=== PATIENT | male | born 1980 | race Caucasian/White ===

== ENCOUNTER 2019-03-25 16:27 | Emergency (ER) | payer OTHER | END 2019-03-25 18:23 | disposition home or self-care (01) | LOC: JERFT 16:27 ==

== ENCOUNTER 2019-03-30 13:39 | Emergency (ER) | payer OTHER ==
--- NOTE | 2019-03-30 13:47 | PDOC ---
Rapid Medical Evaluation Time Seen by Provider: 03/30/19 13:42 Medical Evaluation: Allergies Allergy/AdvReac Type Severity Reaction Status Date / Time No Known Allergies Allergy Verified 03/25/19 16:33 03/30/19 13:43 HPI: Here for f/u from needle stick PE:No gross deficits ORDERS:Nothing Discharge Disposition - Diagnosis Needle stick injury of finger - Referrals - Patient Instructions - Post Discharge Activity
[2019-03-30 13:49] VITALS: BP 161/96; PULSE 72; TEMP 98; BMI 39.1
[2019-03-30] MEDS ORDERED: HEPATITIS B IMMUNE GLOBULIN 5 ML VIAL IM ONE (14:51)
[2019-03-30] MEDS ORDERED: HEPATITIS B VIRUS VACCINE-PF 20 MCG/1ML PRE-FILLED SYRINGE IM ONE (14:57)
--- NOTE | 2019-03-30 14:58 | PDOC ---
History of Present Illness - General Chief Complaint: Non EmpBld/Body Flud Exposure Stated Complaint: NEEDLE EXPOSURE Time Seen by Provider: 03/30/19 13:42 History Source: Patient Exam Limitations: No Limitations Past History - Travel Traveled outside of the country in the last 30 days: No Close contact w/someone who was outside of country & ill: No - Past Medical History Allergies/Adverse Reactions: Allergies Allergy/AdvReac Type Severity Reaction Status Date / Time No Known Allergies Allergy Verified 03/30/19 13:49 Home Medications: Ambulatory Orders Raltegravir [Isentress -] 400 mg PO BID #46 tab 03/25/19 COPD: No - Immunization History Immunization Up to Date: Yes - Suicide/Smoking/Psychosocial Hx Smoking History: Never smoked Have you smoked in the past 12 months: No Hx Alcohol Use: No Drug/Substance Use Hx: No Review of Systems - Review of Systems Able to Perform ROS?: Yes Comments:: 03/30/19 16:19 CONSTITUTIONAL: Absent: fever, chills, diaphoresis, generalized weakness, malaise, loss of appetite HEENT: Absent: rhinorrhea, nasal congestion, throat pain, throat swelling, difficulty swallowing, mouth swelling, ear pain, eye pain, visual Changes CARDIOVASCULAR: Absent: chest pain, loss of consciousness, palpitations, irregular heart rate, peripheral edema RESPIRATORY: Absent: cough, shortness of breath, dyspnea with exertion, orthopnea, wheezing, stridor, hemoptysis GASTROINTESTINAL: Absent: abdominal pain, abdominal distension, nausea, vomiting, diarrhea, constipation, melena, hematochezia GENITOURINARY: Absent: dysuria, frequency, urgency, hesitancy, hematuria, flank pain, genital pain MUSCULOSKELETAL: Absent: myalgia, arthralgia, joint swelling SKIN: Absent: rash, itching, pallor HEMATOLOGIC/IMMUNOLOGIC: Absent: easy bleeding, easy bruising, lymphadenopathy, frequent infections ENDOCRINE: Absent: unexplained weight gain, unexplained weight loss, heat intolerance, cold intolerance NEUROLOGIC: Absent: headache, focal weakness or paresthesias, dizziness, unsteady gait, seizure, mental status changes, bladder or bowel incontinence PSYCHIATRIC: Absent: anxiety, depression, suicidal or homicidal ideation, hallucinations. Is the patient limited Chinese proficient: No *Physical Exam - Vital Signs Last Vital Signs Temp Pulse Resp BP Pulse Ox 98 F 72 18 161/96 99 03/30/19 13:47 03/30/19 13:47 03/30/19 13:47 03/30/19 13:47 03/30/19 13:47 - Physical Exam Comments: 03/30/19 16:19 GENERAL: The patient is awake, alert, and fully oriented, in no acute distress. HEAD: Normal with no signs of trauma. EYES: Pupils equal, round and reactive to light, extraocular movements intact, sclera anicteric, conjunctiva clear. EXTREMITIES: Normal range of motion, no edema. NEUROLOGICAL: Normal speech, normal gait. PSYCH: Normal mood, normal affect. SKIN: Warm, Dry, normal turgor, no rashes or lesions noted. Medical Decision Making - Medical Decision Making 03/30/19 16:20 The patient is a 38-year-old male no past medical history who presents to the ER today after receiving a phone call that he needs hepatitis vaccinations. He was seen 3 days ago after a needlestick exposure. On his hep panel he has no immunity to hepatitis B so he presents for vaccinations. He has no other complaints at this time. A/P: Need for vaccination On exam patient has no complaints, afebrile, vital signs are stable. Hep B vaccine ordered Hep B immunoglobulin ordered; Delay in giving the immunoglobulin as we do not have enough in the hospital to give prophylaxis for his weight. We will be obtaining the immunoglobulin from other hospitals 03/30/19 17:07 Immunoglobulin administered with no reaction Advised to call his PCP tomorrow to set up an appointment for 1 month and 6 months from now to complete the vaccination course Pt. verbilizes understanding and states he will do so DC home I discussed the physical exam findings, ancillary test results and final diagnoses with the patient. I answered all of the patient's questions. The patient was satisfied with the care received and felt comfortable with the discharge plan and treatment plan. The Patient agrees to follow up with the primary care physician/specialist within 24-72 hours. Return precautions were given. *DC/Admit/Observation/Transfer Diagnosis at time of Disposition: Need for vaccination against hepatitis B virus Needle stick injury of finger Qualifiers: Encounter type: subsequent encounter Qualified Code(s): S61.239D - Puncture wound without foreign body of unspecified finger without damage to nail, subsequent encounter; W27.3XXD - Contact with needle (sewing), subsequent encounter - Discharge Dispostion Disposition: HOME Decision to Admit order: No - Referrals - Patient Instructions Printed Discharge Instructions: Hepatitis B Vaccine Additional Instructions: You were immunized against the hepatitis B virus today. You received both immunoglobulin and vaccine. Please call your primary care doctor tomorrow to set up an appointment for 1 month from now in 6 months from now to complete the vaccination course for hepatitis B Return to the ER for any new or worsening symptoms. Hoy te inmunizaron contra el virus de la hepatitis B. Recibi inmunoglobulina y vacuna. Por favor llame a garcia mdico de atencin primaria maana para concertar hua ann para 1 mes a partir de ahora en 6 meses a partir de ahora para completar el curso de vacunacin para la hepatitis B Regrese a Urgencias para cualquier sntoma nuevo o que empeore. Print Language: DUTCH - Post Discharge Activity Forms/Work/School Notes: Back to Work
== END 2019-03-30 17:40 | disposition home or self-care (01) ==
LOC: JERFT 13:39
PROC: 3E023GC Introduction of Other Therapeutic Substance into Muscle, Percutaneous Approach (ICD-10-PCS; principal; 2019-03-30)
DX: Z77.21 Contact with and (suspected) exposure to potentially hazardous body fluids (principal); S61.239D Puncture wound without foreign body of unspecified finger without damage to nail, subsequent encounter; W27.3XXD Contact with needle (sewing), subsequent encounter
CPT/HCPCS: 99281-25